=== PATIENT | female | born 1995 | race African-American/Black ===

== ENCOUNTER 2018-06-12 19:44 | Emergency (ER) | payer OTHER ==
[~2018-06-12] VITALS: Ht 157.5 cm; Wt 53.2 kg
[2018-06-12] MEDS ORDERED: ASPI81CH30 (19:50)
[2018-06-12] MEDS ORDERED: METOCLOPRAMIDE INJ 10MG/2ML VIAL (J2765) IV ONE (21:15)
[2018-06-12] MEDS ORDERED: ACETAMINOPHEN 325 MG TAB PO ONE (21:15)
[2018-06-12] MEDS ORDERED: NS 1,000 ML IV ONE (21:15)
[2018-06-12 22:14] LABS: BASO % 0.3 % (0.0-1.0); EOS % 0.5 % (0.0-3.0); HEMATOCRIT 32.1 % (36.0-47.0); HEMOGLOBIN 11.1 g/dl (12.0-15.5); LYMPH # 1.4 10^3/uL (1.5-6.5); LYMPH % 22.5 % (24.0-44.0); MEAN CORPUSCULAR HEMOGLOBIN 30.1 pg (27.0-33.0); MEAN CORPUSCULAR HGB CONC 34.6 g/dl (32.0-36.5); MONO # 0.4 10^3/uL (0.0-0.8); MONO % 6.1 % (0.0-5.0); NEUTROPHILS # 4.3 10^3/uL (1.8-7.7); NEUTROPHILS % 70.4 % (36.0-66.0); PLATELET COUNT, AUTOMATED 270 10^3/uL (150-450); RED BLOOD COUNT 3.69 10^6/uL (4.00-5.40); WHITE BLOOD COUNT 6.1 10^3/uL (4.0-10.0)
[2018-06-12 22:29] LABS: BLOOD UREA NITROGEN 7 MG/DL (7-18); CALCIUM LEVEL 8.5 MG/DL (8.5-10.1); CARBON DIOXIDE LEVEL 24 MEQ/L (21-32); CHLORIDE LEVEL 105 MEQ/L (98-107); GLOMERULAR FILTRATION RATE > 60.0 (>60); GLUCOSE, FASTING 86 MG/DL (70-100); POTASSIUM SERUM 3.7 MEQ/L (3.5-5.1); SODIUM LEVEL 137 MEQ/L (136-145)
[2018-06-12 23:10] VITALS: BP 112/55
== END 2018-06-12 23:15 | disposition home or self-care (01) ==
LOC: M ED 19:44
DX: O99.351 Diseases of the nervous system complicating pregnancy, first trimester (principal); G43.909 Migraine, unspecified, not intractable, without status migrainosus; Z3A.11 11 weeks gestation of pregnancy; Z91.018 Allergy to other foods
CPT/HCPCS: 36415; 80048; 85025; 96374; 99284; J2765

== ENCOUNTER 2018-08-21 06:33 | Emergency (ER) | payer OTHER ==
[~2018-08-21] VITALS: Ht 157.5 cm; Wt 54.5 kg
[~2018-08-21 06:33] MED LIST: ASPI81CH30
[2018-08-21] MEDS ORDERED: MULTTAB20 PO (06:46)
[2018-08-21] MEDS ORDERED: LIDOCAINE 1% MDV 20ML VIAL IM ONE (07:30)
[2018-08-21] MEDS ORDERED: diphenhydrAMINE INJ 50MG/ML VIAL (J1200) IV ONE (07:30)
[2018-08-21] MEDS ORDERED: SODIUM BICARBONATE 4 % INJ 2.4MEQ 5 ML VIAL (THIS HAS A PRESERVATIVE) XX ONE (07:30)
[2018-08-21] MEDS ORDERED: METOCLOPRAMIDE INJ 10MG/2ML VIAL (J2765) IV ONE (07:30)
[2018-08-21 09:21] VITALS: BP 96/62
== END 2018-08-21 09:24 | disposition home or self-care (01) ==
LOC: M ED 06:33
DX: R51 Headache (principal)
CPT/HCPCS: 96372; 96374; 96375; 99284; J1200; J2765

== ENCOUNTER 2018-11-24 19:08 | Outpatient (CLI) | payer OTHER ==
[~2018-11-24] VITALS: Ht 160 cm; Wt 60.6 kg
[~2018-11-24 19:08] MED LIST changes: -ASPI81CH30; +GOOD81CH; +MULTTAB20 PO
[2018-11-24 19:57] VITALS: BP 112/70
== END 2018-11-24 21:05 | disposition home or self-care (01) ==
LOC: M LDO 19:08
PROVIDERS: ATTEND Obstetrics & Gynecology
DX: O26.893 Other specified pregnancy related conditions, third trimester (principal); R10.30 Lower abdominal pain, unspecified; M54.5 Low back pain; O47.03 False labor before 37 completed weeks of gestation, third trimester; Z3A.34 34 weeks gestation of pregnancy
CPT/HCPCS: 59025; G0378; G0463

== ENCOUNTER 2018-12-08 01:26 | Outpatient (CLI) | payer OTHER ==
[~2018-12-08] VITALS: Ht 160 cm; Wt 61.6 kg
[2018-12-08 02:01] VITALS: BP 114/74
== END 2018-12-08 03:20 | disposition home or self-care (01) ==
LOC: M LDO 01:26
PROVIDERS: ATTEND Obstetrics & Gynecology
DX: O47.03 False labor before 37 completed weeks of gestation, third trimester (principal); Z3A.36 36 weeks gestation of pregnancy
CPT/HCPCS: 59025; G0378; G0463

== ENCOUNTER → 2018-12-12 | Outpatient (CLI) | payer OTHER ==
[~2018-12-12] MED LIST changes: -GOOD81CH; +GOOD81CH2
--- NOTE | 2018-12-13 07:18 | REP ---
Clinical: Growth evaluation. Comparison: None . Findings: Examination demonstrates a single live intrauterine in cephalic presentation. motion is identified by technologist. Placenta is noted anterior and grade grade 1 without evidence for placenta previa or abruption. Amniotic fluid volume is normal. Cervix measures 3.9 cm in length and appears closed. Nuchal cord cannot be excluded. Gestational age by LMP 37 weeks 2 days with VINCENZO 12/31/2018 . Gestational age by current measurements 33 weeks 3 days with VINCENZO 01/27/2019 . FHR equals 153 beats per minute. BPD 8.0 cm 32 weeks 1 day HC 30.0 cm 33 weeks 2 days AC 28.6 cm 32 weeks 4 days FL 6.9 cm of 35 weeks 2 days HL 5.9 cm 34 weeks 1 day HC/AC ratio 1.05 Estimated weight 2193 grams ( < 3rd percentile). Amniotic fluid index: 8.8 cm (7.4 - 24.3) Umbilical cord SD ratio (mid cord): 2.59 Middle cerebral artery SD ratio: 4.46 Impression: Decreased biometrical measurements and weight consistent with intrauterine growth restriction (IUGR) Electronically Signed by Jose Roberto Mcmahon MD 12/13/2018 07:10 A
== END ==
LOC: EDBD → M RAD 16:09
PROVIDERS: ATTEND Nurse Practitioner Women's Health
DX: O36.5930 Maternal care for other known or suspected poor fetal growth, third trimester, not applicable or unspecified (principal); Z3A.33 33 weeks gestation of pregnancy

== ENCOUNTER 2018-12-17 08:36 | Inpatient (IN) | payer OTHER ==
[~2018-12-17] VITALS: Ht 160 cm; Wt 62.8 kg
[2018-12-17] VITALS (27 sets, daily range): BP systolic 100–128; BP diastolic 56–89
[2018-12-17] MEDS ORDERED: LACTATED RINGER'S 1000 ML IV STA (09:12)
[2018-12-17 09:39] LABS: BASO % 0.5 % (0.0-1.0); EOS # 0.1 10^3/uL (0.0-0.50); EOS % 0.8 % (0.0-3.0); HEMATOCRIT 29.4 % (36.0-47.0); HEMOGLOBIN 9.3 g/dl (12.0-15.5); LYMPH % 25.8 % (24.0-44.0); MEAN CORPUSCULAR HEMOGLOBIN 26.2 pg (27.0-33.0); MEAN CORPUSCULAR HGB CONC 31.6 g/dl (32.0-36.5); MEAN CORPUSCULAR VOLUME 82.8 fl (80.0-96.0); MONO # 0.5 10^3/uL (0.0-0.8); MONO % 6.3 % (0.0-5.0); NEUTROPHILS # 5.1 10^3/uL (1.8-7.7); NEUTROPHILS % 66.1 % (36.0-66.0); PLATELET COUNT, AUTOMATED 265 10^3/uL (150-450); RED BLOOD COUNT 3.55 10^6/uL (4.00-5.40); WHITE BLOOD COUNT 7.7 10^3/uL (4.0-10.0)
--- NOTE | 2018-12-17 09:47 | HPEPDOC ---
Obstetrical History & Physical General Date of Admission Dec 17, 2018 at 08:36 History of Present Illness 23yo at 38w0d by LMP c/w first trimester US, being admitted for schedule d IOL for IUGR without doppler abnormalities. Today she feels well and has no complaints. Denies regular ctx, VB, lof. +FM. Denies urinary/bowel symptoms. Chief Complaint: Induction of labor Information Provided By: Patient Age: 23 : 2 Term: 0 Pre-term: 1 Abortions: 0 Livin Care Care: Good Care Dating Final EDC: Dec 31, 2018 Final EDC for Daily Update: Dec 31, 2018 Final EDC by: LMP, 1st trimester (US) Estimated Date of Confinement: Dec 31, 2018 Antepartum Course Diagnos(e)s IUGR without doppler abnormalities History of pre-eclampsia requiring delivery at 32 weeks (on Aspirin) Headaches Height (inches): 62.5 Pre- weight (lbs.): 116 Admission Weight (lbs.): 134 Change in Weight (lbs.): 18 Past Medical History Past Obstetrical History : Past Obstetrical History: Multigravida Date of Delivery: Jan 03, 2014 Gestation: 32 Type of Delivery: Spontaneous Vaginal Del. Sex of : Female Weight of Infant (grams): 3 Complications: Yes BENEFITS TECHNICIAN History: No pertinent history (iol for severe pre-e) Past Medical History Medical History denies Surgical History: [place] teeth Family History Significant Family History: No pertinent family hx Social History Marital Status: Family situation: Spouse/partner home Psychosocial History: No pertinent psych hx * Smoker: non-smoker Alcohol: Denies Drugs: denies Abuse Violence Screening Have you been hit/kicked/slapp: No Have you been sexually assault: No Imunizations Tdap status: current Influenza Status: current Allergies Coded Allergies: MINT (Verified Allergy, Unknown, 12/17/18) Peanut (Verified Allergy, Unknown, 12/17/18) apple (Verified Allergy, Unknown, 12/17/18) Medications Scheduled No122/Iron/Folic Acid ( Multi Tablet) 1 Each Tablet, 1 TAB PO DAILY Miscellaneous Medications Aspirin (Aspirin) 81 Mg Chw Physical Examination Physical Examination GENERAL: Alert and oriented times three. BREAST: . ABDOMEN: Gravid and non-tender to touch. FETUS: Is vertex (VTX) by sterile vaginal examination (SVE), fetus is vertex (VTX) by Cody. HEART RATE: Regular rate and rhythm. LUNGS: Clear to auscultation (CTA). EXTREMITIES: No edema. No clonus. Deep tendon reflexes (DTRs) + . Laboratory Data 24H [facility] Laboratory Tests 2 12/17/18 08:47: Serology Scanned Report Hepatitis B Testing Pertinent Laboratoy Data Blood Type: B+ RBC Antibody Screen: Negative HIV: Negative Hepatitis B: Negative Hepatitis C: Unknown Rapid Plasma Reagin: Nonreactive Rubella: Immune Varicella: Immune Chlamydia/Gonorrhea: Negative Group B Streptococcus: Negative Quad Screen Test: Declined Glucose Tolerance Test: 100 Anatomy Ultrasound Ultrasound Date: Aug 14, 2018 Placenta Location: Anterior Normal Anatomy: Yes Placenta Previa: No Estimated Weight (grams): 308 Other Ultrasounds 12 Dec 2018 = EFW 2193 (<3%ile). Normal dopplers. Steroid Therapy Steroid Therapy: No Vaginal Examination Dilation: 3 cm Effacement: 80% Station: -3 Cervical Consistency: Soft Cervical Position: Posterior Presentation: Cephalic presentation Position: Vertex (occiput) Assessment Heart Rate (FHR): 135 Variability: Moderate Accelerations: Positive Decelerations: None Tocometer Contractions: Yes Frequency: irregular Duration: less than 60 seconds Strength: palpated as mild Multi-drug resistant Organism: No history of MDRO Assessment/Plan Assessment Renaldo is a 23-year-old at 38+0 weeks by LMP c/w first trimester ultrasound. Presents to Labor and Delivery (L&D) for IOL for IUGR with normal dopplers. Has a history of pre-e requiring delivery at 32wks, normotensive this and no s/sx pre-e. PMH/PSH non-contrib. FHT Cat I, SCE 3cm, EFW 2200g by US Dec. -Admit to L&D -Will start induction with pitocin, titrate per protocol -Desires epidural for pain control -, Shanta, present at bedside -Anticipate JAMES Browning MD Plan Admit and orient. Broiler Manager and consent. Diet: . Group B Streptococcus (GBS) [negative]. Labs and intravenous (IV) per unit protocol. Counseled on Pitocin and induction of labor (IOL). Lactated Ringers (LR): Bolus mL, then at mL/hr. Anticipate [normal spontaneous delivery ()]. C-S as appropriate. THADDEUS BROWNING MD Dec 17, 2018 09:47
[2018-12-17] MEDS ORDERED: OXYTOCIN 30 UNITS IN 0.9% NaCl 500ML IV BAG (J2590) As Ordered ONE (10:12)
[2018-12-17] MEDS ORDERED: OXYTOCIN DRIP 30 UNITS in APPROPRIATE DILUENT 1 EA IV SCH (10:15)
[2018-12-17] MEDS: LR 1,000 ML IV SCH ×3 (10:58→17:09)
[2018-12-17] MEDS ORDERED: FENTANYL 2MCG/ML ROPIVACAINE 0.2% IN 0.9% NACL 100ML IVBAG As Ordered ONE (15:03)
[2018-12-17] MEDS ORDERED: FENTANYL/ROPIVACAINE/NACL BAG 100 ML EPIDURAL SCH (16:30)
[2018-12-17] MEDS ORDERED: LACTATED RINGER'S 1000 ML IV PRN (16:30)
[2018-12-17] MEDS ORDERED: ePHEDrine SULFATE 25 MG/5 ML(5MG/ML) SYRINGE IV PRN (16:30)
[2018-12-17] MEDS ORDERED: EPIDURAL/PCA KEYS XX PRN (16:30)
[2018-12-17] MEDS ORDERED: ONDANSETRON 4MG/2ML VIAL (J2405) IV PRN ×2 (16:30→17:15)
[2018-12-17] MEDS ORDERED: EPIDURAL COMMENT XX SCH (16:30)
[2018-12-17] MEDS ORDERED: diphenhydrAMINE INJ 50MG/ML VIAL (J1200) IV PRN (16:30)
[2018-12-17] MEDS ORDERED: REFRIGERATOR IV KEYS XX PRN (16:30)
[2018-12-17] MEDS ORDERED: NALOXONE INJ 0.4 MG/1 ML VIAL (J2310) IV PRN (16:30)
[2018-12-17] MEDS ORDERED: METHYLERGONOVINE MALEATE 0.2 MG TAB PO PRN (17:15)
[2018-12-17] MEDS ORDERED: MEASLES,MUMPS,RUBELLA VACCINE INJ (MMR-II) (90707) SC SCH (17:15)
[2018-12-17] MEDS ORDERED: DIBUCAINE 1% OINTMENT 30GM TOP PRN (17:15)
[2018-12-17] MEDS ORDERED: ACETAMINOPHEN TAB 650MG DOSE (2X325MG) PO PRN (17:15)
[2018-12-17] MEDS ORDERED: IBUPROFEN 600 MG TAB PO PRN (17:15)
[2018-12-17] MEDS ORDERED: PROMETHAZINE 25 MG TAB PO PRN (17:15)
[2018-12-17] MEDS ORDERED: DOCUSATE SODIUM 100 MG CAP PO PRN (17:15)
--- NOTE | 2018-12-17 17:18 | DNPDOC ---
[facility] Delivery Note Delivery Note DATE OF DELIVERY: 17 Dec 2018 PREDELIVERY DIAGNOSIS: 38-0/7 weeks' gestation and labor. POST DELIVERY DIAGNOSIS: Delivered. PROCEDURE: Spontaneous vaginal delivery. RETAIL SALES SPECIALIST: Dr. Maravilla ANESTHESIA: Epidural. ESTIMATED BLOOD LOSS: 200 mL. FINDINGS: 5 pound 6 ounce female infant, Score 9/9, nuchal cord times 1. DELIVERY SUMMARY: Patient is a 23-year-old 2 now para 1102 who was admitted to labor and delivery for IOL for IUGR. She progressed quickly to C/C/+3. With good maternal effort, infant delivered OA and restituted WILLIAM. Loose nuchal reduced on the perineum. Right anterior shoulder and corpus delivered quickly after. Infant was placed on mom's abdomen. After about 1 minute, the cord was clamped twice and cut by MOB. With gentle downward traction and suprapubic pressure, placenta delivered intact with trailing membranes. Lower uterine segment swept and no membranes palpated. Fundus massaged until firm at U-3. Cervix, vagina and perineum inspected with only tiny abrasions present not requiring repair. Hemostasis noted. Lap and needle count correct x2. Mom and infant left in stable condition. MD NALLELY Maravilla TONI M. MD Dec 17, 2018 17:18
[2018-12-17] MEDS: ACETAMINOPHEN 500 MG TAB PO PRN (22:13)
[2018-12-18] MEDS: LR 1,000 ML IV SCH ×3 (01:09→17:09)
[2018-12-18] MEDS: IBUPROFEN 800 MG TAB PO PRN ×2 (02:07→22:08)
[2018-12-18 05:30] VITALS: BP 112/60
[2018-12-18] MEDS: ACETAMINOPHEN 500 MG TAB PO PRN (06:51)
[2018-12-18] MEDS: PRENATAL VITAMINS CHEWABLE TABLET PO SCH (07:56)
[2018-12-18 18:00] VITALS: BP 102/58
[2018-12-19] MEDS: LR 1,000 ML IV SCH (01:09)
[2018-12-19 06:26] VITALS: BP 112/70
[2018-12-19] MEDS: PRENATAL VITAMINS CHEWABLE TABLET PO SCH (07:34)
== END 2018-12-19 13:10 | disposition home or self-care (01) | DRG 807 ==
LOC: EDBD → M LDI 08:36 → M OBS 20:01
PROVIDERS: ADMIT General Practice; ATTEND General Practice
PROC: 10E0XZZ Delivery of Products of Conception, External Approach (ICD-10-PCS; principal; 2018-12-17)
PROC: 3E033VJ Introduction of Other Hormone into Peripheral Vein, Percutaneous Approach (ICD-10-PCS; 2018-12-17)
DX: O36.5930 Maternal care for other known or suspected poor fetal growth, third trimester, not applicable or unspecified (principal); Z37.0 Single live birth; Z3A.38 38 weeks gestation of pregnancy; O69.81X0 Labor and delivery complicated by cord around neck, without compression, not applicable or unspecified